=== PATIENT | male | born 1975 | race Two or more races ===

== ENCOUNTER 2021-07-30 08:28 | Emergency (ER) | payer OTHER ==
[2021-07-30 08:38] VITALS: BP 125/83; PULSE 69; TEMP 97.8; BMI 28.7
[2021-07-30] MEDS ORDERED: KETOROLAC TROMETHAMINE 30 MG/1 ML VIAL IM ONE (09:53)
[2021-07-30] MEDS ORDERED: METHOCARBAMOL 500 MG TABLET PO ONE (09:53)
[2021-07-30] MEDS ORDERED: METHOCARBAMOL 500 MG TABLET ONE (11:14)
[2021-07-30] MEDS ORDERED: KETOROLAC TROMETHAMINE 30 MG/1 ML VIAL ONE ×2 (11:14→11:15)
== END 2021-07-30 11:37 | disposition home or self-care (01) ==
LOC: JERFT 08:28
PROC: 3E0233Z Introduction of Anti-inflammatory into Muscle, Percutaneous Approach (ICD-10-PCS; principal; 2021-07-30)
DX: R51.9 Headache, unspecified (principal); M25.512 Pain in left shoulder; V49.40XA Driver injured in collision with unspecified motor vehicles in traffic accident, initial encounter
CPT/HCPCS: 70450-TC; 73030-TC-LT-FY; 99285-25